=== PATIENT | male | born 1985 | race African-American/Black ===

== ENCOUNTER 2017-12-11 10:14 | Emergency (ER) | payer MEDICAID ==
[~2017-12-11] VITALS: Ht 193 cm; Wt 78.0 kg
[2017-12-11] MEDS ORDERED: AZITHROMYCIN 500 MG TABLET PO ONE (10:45)
[2017-12-11] MEDS ORDERED: LIDOCAINE HCL 1% 20ML VIAL (Pyxis) INJ INFIL ONE (10:45)
[2017-12-11] MEDS ORDERED: CEFTRIAXONE SODIUM 250 MG/VIAL IM ONE (10:45)
[2017-12-11] MEDS ORDERED: ONDANSETRON 4MG ODT PO ONE (12:00)
[2017-12-11 12:35] VITALS: BP 106/63
[2017-12-14 17:06] LABS: CHLAMYDIA TRACHOMATIS NAA Negative (Negative); NEISSERIA GONORRHOEAE NAA Positive (Negative)
== END 2017-12-11 12:38 | disposition home or self-care (01) ==
LOC: ER 10:28
DX: A64 Unspecified sexually transmitted disease (principal); N34.2 Other urethritis; F17.200 Nicotine dependence, unspecified, uncomplicated; F12.10 Cannabis abuse, uncomplicated; Z88.0 Allergy status to penicillin
CPT/HCPCS: 87491; 87591; 96372; 99284; J0696; J3490; Q0162